=== PATIENT | male | born 1955 | race Caucasian/White ===

== ENCOUNTER 2016-08-12 05:08 | Emergency (ER) | payer BC ==
--- NOTE | 2016-08-12 07:05 | DIAGNOSTIC IMAGING REPORT ---
PROCEDURE: XR CHEST 2 VIEW INDICATION: COUGH TECHNIQUE: PA and lateral views. COMPARISON: None. FINDINGS: Findings suggest mild of parenchymal changes at the left medial lung base (retrocardiac region). Lungs are otherwise clear. Heart and mediastinum are normal. Moderate degenerative change of the thoracic spine with old mild compression deformities of some of the mid thoracic vertebral bodies. IMPRESSION: 1. Mild parenchymal change at the left medial lung base. Consider underlying pneumonia (e.g., aspiration, bacterial, Mycoplasma). 2. Findings discussed with Dr. Saqib Singer.
--- NOTE | 2016-08-12 09:43 | ED ORDER SUMMARY ---
..... Patient: CECELIA CABEZAS OrderSheet [facility] VisitID: [id number] [address] [place] [address] 61y, M Registration Date/Time: 08/12/2016 ORDER SHEET Weight: 81.6 kg (stated) Allergies: No Known Drug Allergy GENERAL ORDERS: Chest 2V Urgent (06:08/12/2016 Radha RITTER) (Ack 6:32 Hannah) (6:41 AMcQuoid ER Tech1) Blood Culture (No) (N/A) Urgent (:08/12/2016 Radha RITTER) (Ack 6:31 Hannah) (8:04 MWinterer R.N.) Cardiac Panel Stat (:08/12/2016 Radha RITTER) (Ack 6:30 Hannah) (7:04 MWinterer R.N.) BNP Urgent (:08/12/2016 Radha RITTER) (Ack 6:31 Hannah) (7:04 MWinterer R.N.) TSH Urgent (:08/12/2016 Radha RITTER) (Ack 6:31 Hannah) (7:05 MWinterer R.N.) UA-Culture if indicated Urgent (:08/12/2016 Radha RITTER) (Ack 6:31 Hannah) (Cancelled: Unable to Kfwfamm98:17 MWinterer R.N.) Urine Drug Screen Urgent (:08/12/2016 Radha RITTER) (Ack 6:31 Hannah) (Cancelled: Unable to Jxbdqmc26:18 MWinterer R.N.) CRP Urgent (:08/12/2016 Radha RITTER) (Ack 6:31 Hannah) (7:05 MWinterer R.N.) PCT (Procalcitonin) Urgent (:08/12/2016 Radha RITTER) (Ack 6:31 Hannah) (7:05 MWinterer R.N.) Pulse oximeter (08/12/2016 Radha RITTER) (6:31 HSoule) EKG - ER Stat (06:29 08/12/2016 Radha RITTER) (Ack 6:32 Hannah) (6:51 SRedmond) Rapid Influenza Screen (Nasal Pharyngeal) (swab) Urgent (06:29 08/12/2016 Radha RITTER) (Ack 6:32 Hannah) (7:05 MWinterer R.N.) - (Run the whole liter of NS in prior to discharge.) (08:56 08/12/2016 Radha RITTER) (9:14 MWinterer R.N.) MEDICATION ORDERS: Zithromax PO 500 mg (NOW) (08:22 08/12/2016 Radha RITTER) (8:34 KWrafael R.N.) IV FLUIDS: IV NS : initial bolus 500 mL (1000 mL/hr), then 150 mL/hr for 4h (NOW); Routine (06:28 08/12/2016 Radha RITTER) (Ack 7:00 MWinterer R.N.) (Ack 7:00 Franklin) (7:08 Sina R.N.) Rocephin IV 2 gm/50mL (NOW) (08:22 08/12/2016 Radha RITTER) (8:33 KWilliams R.N.) ORDER SHEET NOTES: [Electronically signed by Radha Begum R.N. (13:19 08/12/2016)] [Electronically signed by Saqib Singer MD (11:47 08/15/2016)] [Electronically locked/signed by Radha Begum R.N. (13:19 08/12/2016)]
--- NOTE | 2016-08-12 09:43 | ED NURSING NOTES ---
Clinical Report - Nurses [facility] [address] [place] [address] 08/12/2016 5:12 [id number] Triage time 05:Aug 12 2016. Acuity: LEVEL 3. Chief Complaint: CHILLS and FATIGUE (Cough). SEPSIS SCREEN: Sepsis Screen: negative. Negative (no infection suspected/documented). [place]SERRAT COMA SCORE: [place] Coma Scale: 15- eyes open spontaneously (4); best verbal response- oriented x 4 (5); best motor response- obeys commands (6). --05:28 Emilee Rae 05:23 08/12/16. BP: 117/68. HR: 65. RR: 20. O2 saturation: 93% on room air. Temp: 98.8 F (oral). Pain level now: 7/10. Additional comments: Low back pain, chronic . --05:28 Emilee Rae. Weight: 81.6 kg stated. Height/Length: 71 inches Per Patient. BMI: 25.1. --05:24 Emilee Rae. Medications None. --05:24 Emilee Rae. Medication/allergy information source: the patient. --05:28 Emilee Rae. Allergies No Known Drug Allergy. --05:24 Emilee Rae. History Arrived by private vehicle. Historian: patient. Unaccompanied. Primary physician (none). Onset. (1 weeks ago). ( Patient reports a dry non productive cough for one week. He reports being chilled and "unable to warm up". He states he is fatigued and just wants to sleep.). PAST MEDICAL HX: Immunizations: status is unknown. SOCIAL HX: Light tobacco smoker (cigarette)- less than 1/2 a pack per day. No alcohol use or drug use. No infectious disease exposure. ABUSE ASSESSMENT: No report of abuse. FALL RISK ASSESSMENT: Fall risk assessment completed. No fall risk identified. NUTRITIONAL RISK ASSESSMENT: The nutritional risk assessment revealed no deficiencies. FUNCTIONAL ASSESSMENT: Functional assessment: no impairments noted. LEARNING NEEDS ASSESSMENT: The learning needs assessment revealed no barriers. SKIN INTEGRITY ASSESSMENT: Skin integrity risk assessment completed. No skin integrity risk identified. --05:28 Emilee Rae. PROBLEMS: Skin Cancer. --05:24 Emilee Rae. 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 --05:24 Emilee Rae. Interventions ID band on patient. To treatment room. --05:28 Emilee Rae. PHYSICAL ASSESSMENT 05:29 08/12/16. Ambulatory to room. GENERAL / NEURO / PSYCH: Alert. Oriented X 4. Appears in no acute distress. RESPIRATORY: Respirations not labored. CVS: Normal sinus rhythm noted. SKIN: Skin is dry. ( Skin cool to touch, patient lips slightly discolored). --05:29 Emilee Rae. NURSING PROGRESS NOTES 05:30 08/12/16. Pulse oximeter and NIBP monitor placed on patient; monitor alarms on. Patient gowned. Head of bed elevated. Warming measures: blanket applied. Reassurance given to the patient. Two patient identifiers checked. Call light placed in reach. Side rails up. Patient placed in chair. Brakes of chair on. Patient ready for evaluation- chart flagged. --05:30 Emilee Rae ( Patient oxygen down to 88% on RA, NC applied at 2 L, Oxygen up to 93%). --05:47 Emilee Rae Patient transported to radiology by stretcher with tech. (06:32 Aug 12 2016). --06:32 Emilee Rae EKG time: (0647 AM). EKG was performed by a tech and shown to the ED physician. --06:51 Doyle Murcia 07:00 08/12/16. BP: 110/60. HR: 61. RR: 20. O2 saturation: 95% on nasal cannula at 3 liters/minute. --07:02 Emilee Rae 07:03 08/12/2016 Site #1 started via IV in the right antecubital space with an 20g angiocath, with aseptic technique and good blood return; one attempt. Blood drawn: rainbow set and cultures x1. Labeled in the presence of the patient and sent to the lab. Saline lock flushed with 10 mL saline. --07:08 Darshan Trevizo R.N. 07:07 08/12/16. Care transferred and report given (Radha RN). --07:07 Darshan Trevizo R.N. 07:08 08/12/2016 Started bag #1 1000 mL IV Fluids IV NS (Saline); at 999 mL/hr over 30 minute(s) via site #1 via IV pump. Allergies verified and confirmed 5 rights. IV patency established. IV site checked: no pain, redness, or swelling. IV flushed thoroughly pre- and post-medication administration. --07:08 Darshan Trevizo R.N. 07:31 08/12/2016 IV Fluids IV NS via IV site #1 Rate Changed: bag #1 decreased to 150 mL/hr via IV pump. IV patency established. IV site checked: no pain, redness, or swelling. IV flushed thoroughly. Confirmed 5 Rights. --07:31 Shelton Regalado R.N. 07:40 08/12/16. BP: 92/49. HR: 57. RR: 18. O2 saturation: 99% on nasal cannula at 2 liters/minute. --07:42 Radha Begum R.N. 07:42 08/12/16. The patient reports no complaints and he is calm and resting quietly. --07:42 Radha Begum R.N. 08:28 08/12/16. BP: 107/55. HR: 60. RR: 18. O2 saturation: 99% on nasal cannula at 2 liters/minute. --08:28 Radha Begum R.N. 08:33 08/12/2016 Started 2 gm of Rocephin (CefTRIAXone Sodium) IVPB in bag #1 50 mL; at 150 mL/hr over 20 minute(s) via site #1 via IV pump. Allergies verified and confirmed 5 rights. IV patency established. IV site checked: no pain, redness, or swelling. IV flushed thoroughly pre- and post-medication administration. Completed per protocol. --08:33 Shelton Regalado R.N. 08:34 08/12/2016 Zithromax PO Tablets 500 mg given. Allergies verified and confirmed 5 rights. --08:34 Shelton Regalado R.N. 09:40 08/12/2016 Site #1 removed upon discharge. Catheter intact. Manual pressure and bandage applied. --13:17 Radha Begum R.N. 09:40 08/12/2016 IV Fluids IV NS Discontinued: bag #1 infused upon discharge. Total amount infused: 1000 mL. IV patency established. IV site checked: no pain, redness, or swelling. IV flushed thoroughly. --13:17 Radha Begum R.N. DISPOSITION / DISCHARGE Departure time: 939Aug 12 2016. Condition at departure: improved and stable. No learning barriers present. Discharge instructions provided and reviewed with the patient. Reviewed medication(s) side effects, precautions and dosing information. Prescription(s) given to the patient. Patient verbalized understanding. Written instructions provided in Macedonian. The patient was discharged by the physician. He was discharged home. He left the Emergency Department ambulatory and via private vehicle. Patient driving. --13:16 Radha Begum R.N. 13:15 08/12/16. BP: 103/57. HR: 57. RR: 20. O2 saturation: 97%. Temp: 98.5 F (oral). Pain level now: 0/10. --13:16 Radha Begum R.N. Locked/Released at 08/12/2016 13:19 by Radha Begum R.N.
--- NOTE | 2016-08-12 09:43 | ED ORDER SUMMARY ---
..... Patient: CECELIA CABEZAS OrderSheet [facility] VisitID: [id number] [address] [place] [address] 61y, M Registration Date/Time: 08/12/2016 ORDER SHEET Weight: 81.6 kg (stated) Allergies: No Known Drug Allergy GENERAL ORDERS: Chest 2V Urgent (06:08/12/2016 Radha RITTER) (Ack 6:32 Hannah) (6:41 AMcQuoid ER Tech1) Blood Culture (No) (N/A) Urgent (:08/12/2016 Radha RITTER) (Ack 6:31 Hannah) (8:04 MWinterer R.N.) Cardiac Panel Stat (:08/12/2016 Radha RITTER) (Ack 6:30 Hannah) (7:04 MWinterer R.N.) BNP Urgent (:08/12/2016 Radha RITTER) (Ack 6:31 Hannah) (7:04 MWinterer R.N.) TSH Urgent (:08/12/2016 Radha RITTER) (Ack 6:31 Hannah) (7:05 MWinterer R.N.) UA-Culture if indicated Urgent (:08/12/2016 Radha RITTER) (Ack 6:31 Hannah) (Cancelled: Unable to Xamwxzj36:17 MWinterer R.N.) Urine Drug Screen Urgent (:08/12/2016 Radha RITTER) (Ack 6:31 Hannah) (Cancelled: Unable to Bnlgnmo63:18 MWinterer R.N.) CRP Urgent (:08/12/2016 Radha RITTER) (Ack 6:31 Hannah) (7:05 MWinterer R.N.) PCT (Procalcitonin) Urgent (:08/12/2016 Radha RITTER) (Ack 6:31 Hannah) (7:05 MWinterer R.N.) Pulse oximeter (08/12/2016 Radha RITTER) (6:31 HSoule) EKG - ER Stat (06:29 08/12/2016 Radha RITTER) (Ack 6:32 Hannah) (6:51 SRedmond) Rapid Influenza Screen (Nasal Pharyngeal) (swab) Urgent (06:29 08/12/2016 Radha RITTER) (Ack 6:32 Hannah) (7:05 MWinterer R.N.) - (Run the whole liter of NS in prior to discharge.) (08:56 08/12/2016 Radha RITTER) (9:14 MWinterer R.N.) MEDICATION ORDERS: Zithromax PO 500 mg (NOW) (08:22 08/12/2016 Radha RITTER) (8:34 KWrafael R.N.) IV FLUIDS: IV NS : initial bolus 500 mL (1000 mL/hr), then 150 mL/hr for 4h (NOW); Routine (06:28 08/12/2016 Radha RITTER) (Ack 7:00 MWinterer R.N.) (Ack 7:00 Franklin) (7:08 Sina R.N.) Rocephin IV 2 gm/50mL (NOW) (08:22 08/12/2016 Radha RITTER) (8:33 KWilliams R.N.) ORDER SHEET NOTES: [Electronically signed by Radha Begum R.N. (13:19 08/12/2016)] [Electronically signed by Saqib Singer MD (11:47 08/15/2016)] [Electronically locked/signed by Radha Begum R.N. (13:19 08/12/2016)]
--- NOTE | 2016-08-12 09:43 | ED CLINICAL REPORT ---
Clinical Report - Physicians/[facility] [address] [place] [address] 08/12/2016 5:12 Patient: CECELIA CABEZAS Time Seen: 06:07 Aug 12 2016. Arrived- By private vehicle. Historian- patient. CPT: ER phys charges level 4 (#[id number]). HISTORY OF PRESENT ILLNESS Chief Complaint: COUGH and CHILLS. 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 The illness is described as moderate. The patient has had sputum production, a cough, chills and muscle aches. No difficulty breathing or chest discomfort or pain. Additional history - No known contact with a sick individual. (Weakness.). Similar symptoms previously: None. Recent medical care: Not recently seen/assessed. REVIEW OF SYSTEMS No headache, eye discomfort, nausea, vomiting or diarrhea. No abdominal pain, pedal edema, calf pain, difficulty with urination or skin rash. No enlarged lymph nodes or joint pain. All systems otherwise negative, except as recorded above. 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 Medications: None. Allergies: No Known Drug Allergy. SOCIAL HISTORY Heavy tobacco smoker (cigarette)- less than 1 pack per day. ADDITIONAL NOTES The nursing notes have been reviewed. PHYSICAL EXAM Vital Signs: 08/12/2016 05:23 BP: 117/68. HR: 65. RR: 20. O2 saturation: 93%. Temp: 98.8 F. Pain level now: 7/10. Appearance: Alert. No acute distress. Eyes: Pupils equal, round and reactive to light. Eyes normal inspection. ENT: Ears normal. Nose normal. Pharynx normal. Uvula midline. (Large facial scar , left face.). Neck: Normal inspection. Neck supple. CVS: Normal heart rate and rhythm. Heart sounds normal. Pulses normal. Respiratory: No respiratory distress. Moderately decreased breath sounds diffusely over both lungs. No rales, rhonchi or wheezes. Abdomen: Soft and nontender. Back: Normal inspection. Skin: Skin warm. Normal skin color. No rash. Extremities: Extremities exhibit normal ROM. No calf tenderness. No lower extremity edema. Neuro: Oriented X 3. No motor deficit. No sensory deficit. Reflexes normal. LABS, X-RAYS, AND EKG Chest X-ray: (Left , retrocardiac infiltrate consistent with pneumonia). Views: PA and lateral. Technique: good. The X-rays were independently viewed by me, interpreted by the radiologist and discussed with the radiologist. Laboratory Tests: CBC w Diff: (MIRTA: 08/12/2016 06:45) ( [facility] 08/12/2016 07:14) Final results Test Result Flag Units (Reference) WHITE BLOOD COUNT 9.9 K/uL (4.5-11.5) RED BLOOD COUNT 4.58 M/uL (4.50-5.90) HEMOGLOBIN 13.9 gm/dL (13.5-17.5) HEMATOCRIT 41.3 % (41.0-53.0) MEAN CELL VOLUME 90 fL (80-100) MEAN CORPUSCULAR HGB 30 pg (26-34) MEAN CORPUSCULAR HGB CONC 34 g/dL (31-37) RED CELL DISTRIBUTION WIDTH 14.4 % (11.6-14.8) PLATELET COUNT 164 K/uL (150-400) NEUTROPHIL % 78.2 H % (50-75) LYMPH % 9.5 L % (25-40) MONO % 12.2 % (3-14) EOSINOPHIL % 0 % (0-4) BASOPHIL % 0.1 % (0-2) BNP: (MIRTA: 08/12/2016 06:45) ( [facility] 08/12/2016 07:36) Final results Test Result Flag Units (Reference) B-TYPE NATRIURETIC PEPTIDE 41.6 pg/ml (5-100) [id number]: (MIRTA: 08/12/2016 06:45) ( [facility] 08/12/2016 07:56) Final results Test Result Flag Units (Reference) PROCALCITONIN <0.5 ng/mL (0-0.5) PCT Concentration: Interpretation : Risk/option for action PCT <=0.5 ng/mL : Systemic : Low risk forinfection(sepsis): progression to severeis not likely. : systemic infection.Local bacterial : CAUTION-PCT levelsinfection is : below 0.5 ng/mL do notpossible. : exclude an infection,because localizedinfections (withoutsystemic signs) may beassociated with suchlow levels. If PCT ismeasured very earlyafter a bacterialchallenge (usually <6hours), these valuesmay still be low. Inthis case PCT shouldbe re-assessed 6-24hours later. PCT >0.5 and : Systemic infection: Moderate risk for<= 2 ng/mL : (sepsis) is : progression to severepossible, but : systemic infection.other conditions : The patient should beare known to : closely monitoredelevate PCT. : both clinically andby re-assessing PCTwithin 6-24 hours. PCT > 2 ng/mL : Systemic infection: High risk for(sepsis) is likely: progression to severeunless other : systemic infection.causes are known. : PCT >= 10 ng/mL : Important systemic: High likelihood ofinflammatory : severe sepsis orresponse, almost : septic shock.exclusively due to:severe bacterial :sepsis or septic :shock. : CHEM 13 PANEL: (MIRTA: 08/12/2016 06:45) ( MsgRcvd 08/12/2016 07:55) Final results Test Result Flag Units (Reference) GLUCOSE 101 mg/dL (70-110) BUN 19 H mg/dL (7-18) CREATININE 0.9 mg/dL (0.6-1.3) Estimated GFR >60 mL/min Estimated GFR- >60 mL/min Note: Persistent reduction over 3 months in eGFR<60 mL/min/1.73 m2 defines CKD. Patients with eGFR values>=60 mL/min/1.73 m2 may also have CKD if evidence ofpersistent proteinuria. Additional information may be foundat www.kidney.org. SODIUM 129 L mmol/L (136-145) POTASSIUM 4.2 mmol/L (3.5-5.1) CHLORIDE 95 L mmol/L (98-107) CARBON DIOXIDE 26 mmol/L (21-32) CALCIUM 8.5 mg/dL (8.5-10.1) TOTAL PROTEIN 7.5 g/dL (6.4-8.2) ALBUMIN 3.1 L g/dL (3.3-5.0) BILIRUBIN, TOTAL 0.4 mg/dL (0.0-1.0) ALKALINE PHOSPHATASE 65 U/L (46-116) AST (SGOT) 32 U/L (15-37) ALT (SGPT) 31 U/L (12-78) CPK 457 H U/L (24-260) MAGNESIUM 1.9 mg/dL (1.8-2.4) CK-MB 1.3 ng/mL (0.5-3.2) %CKMB 0.3 % (0.0-4.0) TROPONIN I <0.05 L ng/mL (0.00-1.5) TROPONIN REFERENCE RANGE:<0.1 NEGATIVE0.1-1.5 INDETERMINANT>1.5 POSITIVE THYROID STIMULATING HORMONE 3.115 uIU/mL (0.30-3.74) C-REACTIVE PROTEIN 5.8 H mg/dL (0.0-0.9) Rapid Influenza Screen: (MIRTA: 08/12/2016 06:45) ( MsgRcvd 08/12/2016 07:24) Final results SPECIMEN DESCRIPTION: SWAB Test Result Flag Units (Reference) RAPID INFLUENZA SCREEN DATE: 08/12/16 INFLUENZA A: NEGATIVE SCREEN FOR INFLUENZA A INFLUENZA B: NEGATIVE SCREEN FOR INFLUENZA B . PROGRESS AND PROCEDURES Course of Care: IV NS BC times 2 Rocephin 2g IV Zithromax 500 mg po No hypoxia or signs of sepsis. Patient/family counseled. Disposition: Discharged. Condition: stable and improved. CLINICAL IMPRESSION Bacterial pneumonia. Vital signs recorded and reviewed; empiric antibiotics given in the ED. No hypoxemia. Dehydration. INSTRUCTIONS Do not work for three days until better. Drink plenty of fluids. Warnings: Further evaluation is necessary. GENERAL WARNINGS: Return or contact your physician immediately if your condition worsens or changes unexpectedly, if not improving as expected, or if other problems arise. Prescription Medications: Albuterol HFA oral inhaler: inhale 2 puffs via spacer every 4 hours as needed for difficulty breathing, until symptoms improve. Dispense one (1) unit. No refill. Ceftin 500 mg: take 1 tab orally every 12 hours for 10 days. No refills. Substitution is permissible. Zithromax 250 mg tablets: take 1 orally every day for 4 days. Total course 4 days. No refills. Substitution is permissible. Prednisone 40 mg a day for 3 days. OTC Medications: Acetaminophen (available over the counter): take according to label instructions. Follow-up: Follow up with your doctor in three days. Call for the next available appointment. Understanding of the discharge instructions verbalized by patient. (Electronically signed by Saqib Singer MD 08/15/2016 11:47)
--- NOTE | 2016-08-12 09:43 | ED CLINICAL REPORT ---
Clinical Report - Physicians/Mid Levels [facility] [address] [place] [address] 08/12/2016 5:12 Patient: CECELIA CABEZAS Time Seen: 06:07 Aug 12 2016. Arrived- By private vehicle. Historian- patient. CPT: ER phys charges level 4 (#[id number]). HISTORY OF PRESENT ILLNESS Chief Complaint: COUGH and CHILLS. This started about 4 days [employer] and is still present. The illness is described as moderate. The patient has had sputum production, a cough, chills and muscle aches. No difficulty breathing or chest discomfort or pain. Additional history - No known contact with a sick individual. (Weakness.). Similar symptoms previously: None. Recent medical care: Not recently seen/assessed. REVIEW OF SYSTEMS No headache, eye discomfort, nausea, vomiting or diarrhea. No abdominal pain, pedal edema, calf pain, difficulty with urination or skin rash. No enlarged lymph nodes or joint pain. All systems otherwise negative, except as recorded above. 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 Medications: None. Allergies: No Known Drug Allergy. SOCIAL HISTORY Heavy tobacco smoker (cigarette)- less than 1 pack per day. ADDITIONAL NOTES The nursing notes have been reviewed. PHYSICAL EXAM Vital Signs: 08/12/2016 05:23 BP: 117/68. HR: 65. RR: 20. O2 saturation: 93%. Temp: 98.8 F. Pain level now: 7/10. Appearance: Alert. No acute distress. Eyes: Pupils equal, round and reactive to light. Eyes normal inspection. ENT: Ears normal. Nose normal. Pharynx normal. Uvula midline. (Large facial scar , left face.). Neck: Normal inspection. Neck supple. CVS: Normal heart rate and rhythm. Heart sounds normal. Pulses normal. Respiratory: No respiratory distress. Moderately decreased breath sounds diffusely over both lungs. No rales, rhonchi or wheezes. Abdomen: Soft and nontender. Back: Normal inspection. Skin: Skin warm. Normal skin color. No rash. Extremities: Extremities exhibit normal ROM. No calf tenderness. No lower extremity edema. Neuro: Oriented X 3. No motor deficit. No sensory deficit. Reflexes normal. LABS, X-RAYS, AND EKG Chest X-ray: (Left , retrocardiac infiltrate consistent with pneumonia). Views: PA and lateral. Technique: good. The X-rays were independently viewed by me, interpreted by the radiologist and discussed with the radiologist. Laboratory Tests: CBC w Diff: (MIRTA: 08/12/2016 06:45) ( [facility] 08/12/[facility] 07:14) Final results Test Result Flag Units (Reference) WHITE BLOOD COUNT 9.9 K/uL (4.5-11.5) RED BLOOD COUNT 4.58 M/uL (4.50-5.90) HEMOGLOBIN 13.9 gm/dL (13.5-17.5) HEMATOCRIT 41.3 % (41.0-53.0) MEAN CELL VOLUME 90 fL (80-100) MEAN CORPUSCULAR HGB 30 pg (26-34) MEAN CORPUSCULAR HGB CONC 34 g/dL (31-37) RED CELL DISTRIBUTION WIDTH 14.4 % (11.6-14.8) PLATELET COUNT 164 K/uL (150-400) NEUTROPHIL % 78.2 H % (50-75) LYMPH % 9.5 L % (25-40) MONO % 12.2 % (3-14) EOSINOPHIL % 0 % (0-4) BASOPHIL % 0.1 % (0-2) BNP: (MIRTA: 08/12/2016 06:45) ( [facility] 08/12/2016 07:36) Final results Test Result Flag Units (Reference) B-TYPE NATRIURETIC PEPTIDE 41.6 pg/ml (5-100) [id number]: (MIRTA: 08/12/2016 06:45) ( [facility] 08/12/2016 07:56) Final results Test Result Flag Units (Reference) PROCALCITONIN <0.5 ng/mL (0-0.5) PCT Concentration: Interpretation : Risk/option for action PCT <=0.5 ng/mL : Systemic : Low risk forinfection(sepsis): progression to severeis not likely. : systemic infection.Local bacterial : CAUTION-PCT levelsinfection is : below 0.5 ng/mL do notpossible. : exclude an infection,because localizedinfections (withoutsystemic signs) may beassociated with suchlow levels. If PCT ismeasured very earlyafter a bacterialchallenge (usually <6hours), these valuesmay still be low. Inthis case PCT shouldbe re-assessed 6-24hours later. PCT >0.5 and : Systemic infection: Moderate risk for<= 2 ng/mL : (sepsis) is : progression to severepossible, but : systemic infection.other conditions : The patient should beare known to : closely monitoredelevate PCT. : both clinically andby re-assessing PCTwithin 6-24 hours. PCT > 2 ng/mL : Systemic infection: High risk for(sepsis) is likely: progression to severeunless other : systemic infection.causes are known. : PCT >= 10 ng/mL : Important systemic: High likelihood ofinflammatory : severe sepsis orresponse, almost : septic shock.exclusively due to:severe bacterial :sepsis or septic :shock. : CHEM 13 PANEL: (MIRTA: 08/12/2016 06:45) ( MsgRcvd 08/12/2016 07:55) Final results Test Result Flag Units (Reference) GLUCOSE 101 mg/dL (70-110) BUN 19 H mg/dL (7-18) CREATININE 0.9 mg/dL (0.6-1.3) Estimated GFR >60 mL/min Estimated GFR- >60 mL/min Note: Persistent reduction over 3 months in eGFR<60 mL/min/1.73 m2 defines CKD. Patients with eGFR values>=60 mL/min/1.73 m2 may also have CKD if evidence ofpersistent proteinuria. Additional information may be foundat www.[email or web address].org. SODIUM 129 L mmol/L (136-145) POTASSIUM 4.2 mmol/L (3.5-5.1) CHLORIDE 95 L mmol/L (98-107) CARBON DIOXIDE 26 mmol/L (21-32) CALCIUM 8.5 mg/dL (8.5-10.1) TOTAL PROTEIN 7.5 g/dL (6.4-8.2) ALBUMIN 3.1 L g/dL (3.3-5.0) BILIRUBIN, TOTAL 0.4 mg/dL (0.0-1.0) ALKALINE PHOSPHATASE 65 U/L (46-116) AST (SGOT) 32 U/L (15-37) ALT (SGPT) 31 U/L (12-78) CPK 457 H U/L (24-260) MAGNESIUM 1.9 mg/dL (1.8-2.4) CK-MB 1.3 ng/mL (0.5-3.2) %CKMB 0.3 % (0.0-4.0) TROPONIN I <0.05 L ng/mL (0.00-1.5) TROPONIN REFERENCE RANGE:<0.1 NEGATIVE0.1-1.5 INDETERMINANT>1.5 POSITIVE THYROID STIMULATING HORMONE 3.115 uIU/mL (0.30-3.74) C-REACTIVE PROTEIN 5.8 H mg/dL (0.0-0.9) Rapid Influenza Screen: (MIRTA: 08/12/2016 06:45) ( MsgRcvd 08/12/2016 07:24) Final results SPECIMEN DESCRIPTION: SWAB Test Result Flag Units (Reference) RAPID INFLUENZA SCREEN DATE: 08/12/16 INFLUENZA A: NEGATIVE SCREEN FOR INFLUENZA A INFLUENZA B: NEGATIVE SCREEN FOR INFLUENZA B . PROGRESS AND PROCEDURES Course of Care: IV NS BC times 2 Rocephin 2g IV Zithromax 500 mg po No hypoxia or signs of sepsis. Patient/family counseled. Disposition: Discharged. Condition: stable and improved. CLINICAL IMPRESSION Bacterial pneumonia. Vital signs recorded and reviewed; empiric antibiotics given in the ED. No hypoxemia. Dehydration. INSTRUCTIONS Do not work for three days until better. Drink plenty of fluids. Warnings: Further evaluation is necessary. GENERAL WARNINGS: Return or contact your physician immediately if your condition worsens or changes unexpectedly, if not improving as expected, or if other problems arise. Prescription Medications: Albuterol HFA oral inhaler: inhale 2 puffs via spacer every 4 hours as needed for difficulty breathing, until symptoms improve. Dispense one (1) unit. No refill. Ceftin 500 mg: take 1 tab orally every 12 hours for 10 days. No refills. Substitution is permissible. Zithromax 250 mg tablets: take 1 orally every day for 4 days. Total course 4 days. No refills. Substitution is permissible. Prednisone 40 mg a day for 3 days. OTC Medications: Acetaminophen (available over the counter): take according to label instructions. Follow-up: Follow up with your doctor in three days. Call for the next available appointment. Understanding of the discharge instructions verbalized by patient. (Electronically signed by Saqib Singer MD 08/15/2016 11:47)
--- NOTE | 2016-08-15 11:47 | ED DISCHARGE INSTRUCTIONS ---
Patient: CECELIA CABEZAS General Instructions [facility] VisitID: [id number] [address] [place] [address] 61y, M Registration Date/Time: 08/12/2016 Bacterial pneumonia. Vital signs recorded and reviewed; empiric antibiotics given in the ED. No hypoxemia. Dehydration. INSTRUCTIONS Do not work for three days until better. Drink plenty of fluids. Warnings: Further evaluation is necessary. GENERAL WARNINGS: Return or contact your physician immediately if your condition worsens or changes unexpectedly, if not improving as expected, or if other problems arise. Prescription Medications: Albuterol HFA oral inhaler: inhale 2 puffs via spacer every 4 hours as needed for difficulty breathing, until symptoms improve. Dispense one (1) unit. No refill. Ceftin 500 mg: take 1 tab orally every 12 hours for 10 days. No refills. Substitution is permissible. Zithromax 250 mg tablets: take 1 orally every day for 4 days. Total course 4 days. No refills. Substitution is permissible. Prednisone 40 mg a day for 3 days. OTC Medications: Acetaminophen (available over the counter): take according to label instructions. Follow-up: Follow up with your doctor in three days. Call for the next available appointment. Understanding of the discharge instructions verbalized by patient. ADDITIONAL INFORMATION Pneumonia (Adult) Pneumonia is an infection deep within the lung, in the small air sacs (alveoli). It may be due to a virus or bacteria and is usually treated with an antibiotic. Severe cases require treatment in the hospital. Milder cases can be treated at home. Symptoms usually start to improve during the first2 days of treatment. Home Care: Rest at home for the first 23 days or until you feel stronger. When resuming activity, dont let yourself become overly tired. Avoid exposure to cigarette smoke (yours or others). You may use acetaminophen (Tylenol) or ibuprofen (Motrin, Advil) to control fever or pain, unless another medicine was prescribed. [NOTE: If you have chronic liver or kidney disease or ever had a stomach ulcer or GI bleeding, talk with your doctor before using these medicines.] (Aspirin should never be used in anyone under 18 years of age who is ill with a fever. It may cause severe liver damage.) Your appetite may be poor so a light diet is fine. Keep well hydrated by drinking 68 glasses of fluids per day (water, sport drinks such as Gatorade, sodas without caffeine, juices, tea, soup, etc.). This will help loosen secretions in the lung, making it easier for you to cough up the phlegm (sputum). If you also have heart or kidney disease, check with your doctor before you drink extra amounts of fluids. Finish all antibiotic medicine prescribed, even if you are feeling better after a few days. Follow Up with your doctor in the next 23 days (or as advised) to be sure you are responding properly to the medicine. [NOTE: If you are age 65 or older, or if you have chronic lung disease (asthma, emphysema or COPD), we recommendthe pneumococcal vaccination and a yearlyinfluenzavaccination(flu-shot) every . Ask your doctor about this.] Get Prompt Medical Attention if any of the following occur: Not getting better within the first 48 hours of treatment Increasing shortness of breath or rapid breathing (over 25 breaths/minute) Coughing up blood or increasing chest pain with breathing Fever of 100.4F (38C) oral or higher, not better with fever medication Increasing weakness, dizziness or fainting Increasing thirst or dry mouth Sinus pain, headache or a stiff neck Chest pain not caused by coughing Albuterol Sulfate Pressurized inhalation, suspension What is this medicine? ALBUTEROL (al BYOO ter ole) is a bronchodilator. It helps open up the airways in your lungs to make it easier to breathe. This medicine is used to treat and to prevent bronchospasm. How should I use this medicine? This medicine is for inhalation through the mouth. Follow the directions on your prescription label. Take your medicine at regular intervals. Do not use more often than directed. Make sure that you are using your inhaler correctly. Ask you doctor or health care provider if you have any questions. Talk to your engineer systems regarding the use of this medicine in children. Special care may be needed. What side effects may I notice from receiving this medicine? Side effects that you should report to your doctor or health palliative care nurse practitioner as soon as possible: allergic reactions like skin rash, itching or hives, swelling of the face, lips, or tongue breathing problems chest pain feeling faint or lightheaded, falls high blood pressure irregular heartbeat fever muscle cramps or weakness pain, tingling, numbness in the hands or feet vomiting Side effects that usually do not require medical attention (report to your doctor or health palliative care nurse practitioner if they continue or are bothersome): cough difficulty sleeping headache nervousness or trembling stomach upset stuffy or runny nose throat irritation unusual taste What may interact with this medicine? anti-infectives like chloroquine and pentamidine caffeine cisapride diuretics medicines for colds medicines for depression or for emotional or psychotic conditions medicines for weight loss including some herbal products methadone some antibiotics like clarithromycin, erythromycin, levofloxacin, and linezolid some heart medicines steroid hormones like dexamethasone, cortisone, hydrocortisone theophylline thyroid hormones What if I miss a dose? If you miss a dose, use it as soon as you can. If it is almost time for your next dose, use only that dose. Do not use double or extra doses. Where should I keep my medicine? Keep out of the reach of children. Store at room temperature between 15 and 30 degrees C (59 and 86 degrees F). The contents are under pressure and may burst when exposed to heat or flame. Do not freeze. This medicine does not work as well if it is too cold. Throw away any unused medicine after the expiration date. Inhalers need to be thrown away after the labeled number of puffs have been used or by the expiration date; whichever comes first. Ventolin HFA should be thrown away 12 months after removing from foil pouch. Check the instructions that come with your medicine. What should I tell my health care provider before I take this medicine? They need to know if you have any of the following conditions: diabetes heart disease or irregular heartbeat high blood pressure pheochromocytoma seizures thyroid disease an unusual or allergic reaction to albuterol, levalbuterol, sulfites, other medicines, foods, dyes, or preservatives or trying to get breast-feeding What should I watch for while using this medicine? Tell your doctor or health palliative care nurse practitioner if your symptoms do not improve. Do not use extra albuterol. If your asthma or bronchitis gets worse while you are using this medicine, call your doctor right away. If your mouth gets dry try chewing sugarless gum or sucking hard candy. Drink water as directed. Azithromycin Oral tablet What is this medicine? AZITHROMYCIN (az ith rylan MYE sin) is a macrolide antibiotic. It is used to treat or prevent certain kinds of bacterial infections. It will not work for colds, flu, or other viral infections. How should I use this medicine? Take this medicine by mouth with a full glass of water. Follow the directions on the prescription label. The tablets can be taken with food or on an empty stomach. If the medicine upsets your stomach, take it with food. Take your medicine at regular intervals. Do not take your medicine more often than directed. Take all of your medicine as directed even if you think your are better. Do not skip doses or stop your medicine early. Talk to your engineer systems regarding the use of this medicine in children. Special care may be needed. What side effects may I notice from receiving this medicine? Side effects that you should report to your doctor or health palliative care nurse practitioner as soon as possible: allergic reactions like skin rash, itching or hives, swelling of the face, lips, or tongue confusion, nightmares or hallucinations dark urine difficulty breathing hearing loss irregular heartbeat or chest pain pain or difficulty passing urine redness, blistering, peeling or loosening of the skin, including inside the mouth white patches or sores in the mouth yellowing of the eyes or skin Side effects that usually do not require medical attention (report to your doctor or health palliative care nurse practitioner if they continue or are bothersome): diarrhea dizziness, drowsiness headache stomach upset or vomiting tooth discoloration vaginal irritation What may interact with this medicine? Do not take this medicine with any of the following medications: lincomycin This medicine may also interact with the following medications: amiodarone antacids cyclosporine digoxin magnesium nelfinavir phenytoin warfarin What if I miss a dose? If you miss a dose, take it as soon as you can. If it is almost time for your next dose, take only that dose. Do not take double or extra doses. Where should I keep my medicine? Keep out of the reach of children. Store at room temperature between 15 and 30 degrees C (59 and 86 degrees F). Throw away any unused medicine after the expiration date. What should I tell my health care provider before I take this medicine? They need to know if you have any of these conditions: kidney disease liver disease irregular heartbeat or heart disease an unusual or allergic reaction to azithromycin, erythromycin, other macrolide antibiotics, foods, dyes, or preservatives or trying to get breast-feeding What should I watch for while using this medicine? Tell your doctor or health palliative care nurse practitioner if your symptoms do not improve. Do not treat diarrhea with over the counter products. Contact your doctor if you have diarrhea that lasts more than 2 days or if it is severe and watery. This medicine can make you more sensitive to the sun. Keep out of the sun. If you cannot avoid being in the sun, wear protective clothing and use sunscreen. Do not use sun lamps or tanning beds/booths. You have been given the following additional information: Pneumonia (Adult) Albuterol Sulfate Pressurized inhalation, suspension Azithromycin Oral tablet Do not work for three days until better. (Electronically signed by Saqib Singer MD 08/15/2016 11:47)
--- NOTE | 2016-08-15 11:47 | ED MED RECONCILIATION SUMMARY ---
Patient: CECELIA CABEZAS Medication Reconciliation Report [facility] VisitID: [id number] [address] [place] [address] 61y, M Registration Date/Time: 08/12/2016 Weight: 81.6 kg Height/Length: 71 in. BMI: 25.1 ALLERGIES: No Known Drug Allergy The patient's Home Medications are listed below: NONE. The source(s) of the original Home Medication information: patient The following Medications were given to the patient in the Emergency Department: IV NS IV Fluids bolus 0, then 999 mL/hr, administered: 08/12/2016 7:08:00 AM Rocephin [IVPB] IVPB bolus 0, then 2 gm 150 mL/hr, administered: 08/12/2016 8:33:00 AM Zithromax [PO] PO 500 mg, administered: 08/12/2016 8:34:00 AM The following Medications were prescribed to the patient: Acetaminophen (available over the counter): take according to label instructions. -- Saqib Singer MD Prednisone 40 mg a day for 3 days. -- Saqib Singer MD Albuterol HFA oral inhaler: inhale 2 puffs via spacer every 4 hours as needed for difficulty breathing, until symptoms improve. Dispense one (1) unit. No refill. -- Saqib Singer MD Ceftin 500 mg: take 1 tab orally every 12 hours for 10 days. No refills. Substitution is permissible. -- Saqib Singer MD Zithromax 250 mg tablets: take 1 orally every day for 4 days. Total course 4 days. No refills. Substitution is permissible. -- Saqib Singer MD
--- NOTE | 2016-08-15 11:47 | ED MAR SUMMARY ---
..... Medication Administration Record [facility] [address] [place] [address] Patient: CECELIA CABEZAS Visit ID: [id number] 61y, M Weight: 81.6 kg Height/Length: 71 in BMI: 25.1 ALLERGIES: No Known Drug Allergy Start 07:08 08/12/2016 Darshan Trevizo R.N., Stop 09:40 08/12/2016 Radha Begum R.N. Medication Administered: IV NS (SALINE), Dose: IV Fluids over 30 minute(s), Rate: 999 mL/hr, Dispensed: 1000 mL bag, Site: #1 right AC. Medication Ordered: IV NS : initial bolus 500 mL (1000 mL/hr), then 150 mL/hr for 4h (NOW); Routine. Start 08:33 08/12/2016 Shelton Regalado R.N. Medication Administered: ROCEPHIN [IVPB] (CEFTRIAXONE SODIUM), Dose: 2 gm IVPB over 20 minute(s), Rate: 150 mL/hr, Dispensed: 50 mL bag, Site: #1 right AC. Medication Ordered: Rocephin IV 2 gm/50mL (NOW). Given 08:34 08/12/2016 Shelton Regalado R.N. Medication Administered: ZITHROMAX [PO], Dose: 500 mg Tablets PO. Medication Ordered: Zithromax PO 500 mg (NOW).
--- NOTE | 2016-08-15 11:47 | ED MED RECONCILIATION SUMMARY ---
Patient: CECELIA CABEZAS Medication Reconciliation Report [facility] VisitID: [id number] [address] [place] [address] 61y, M Registration Date/Time: 08/12/2016 Weight: 81.6 kg Height/Length: 71 in. BMI: 25.1 ALLERGIES: No Known Drug Allergy The patient's Home Medications are listed below: NONE. The source(s) of the original Home Medication information: patient The following Medications were given to the patient in the Emergency Department: IV NS IV Fluids bolus 0, then 999 mL/hr, administered: 08/12/2016 7:08:00 AM Rocephin [IVPB] IVPB bolus 0, then 2 gm 150 mL/hr, administered: 08/12/2016 8:33:00 AM Zithromax [PO] PO 500 mg, administered: 08/12/2016 8:34:00 AM The following Medications were prescribed to the patient: Acetaminophen (available over the counter): take according to label instructions. -- Saqib Singer MD Prednisone 40 mg a day for 3 days. -- Saqib Singer MD Albuterol HFA oral inhaler: inhale 2 puffs via spacer every 4 hours as needed for difficulty breathing, until symptoms improve. Dispense one (1) unit. No refill. -- Saqib Singer MD Ceftin 500 mg: take 1 tab orally every 12 hours for 10 days. No refills. Substitution is permissible. -- Saqib Singer MD Zithromax 250 mg tablets: take 1 orally every day for 4 days. Total course 4 days. No refills. Substitution is permissible. -- Saqib Singer MD
--- NOTE | 2016-08-15 11:47 | ED MAR SUMMARY ---
..... Medication Administration Record [facility] [address] [place] [address] Patient: CECELIA CABEZAS Visit ID: [id number] 61y, M Weight: 81.6 kg Height/Length: 71 in BMI: 25.1 ALLERGIES: No Known Drug Allergy Start 07:08 08/12/2016 Darshan Trevizo R.N., Stop 09:40 08/12/2016 Radha Begum R.N. Medication Administered: IV NS (SALINE), Dose: IV Fluids over 30 minute(s), Rate: 999 mL/hr, Dispensed: 1000 mL bag, Site: #1 right AC. Medication Ordered: IV NS : initial bolus 500 mL (1000 mL/hr), then 150 mL/hr for 4h (NOW); Routine. Start 08:33 08/12/2016 Shelton Regalado R.N. Medication Administered: ROCEPHIN [IVPB] (CEFTRIAXONE SODIUM), Dose: 2 gm IVPB over 20 minute(s), Rate: 150 mL/hr, Dispensed: 50 mL bag, Site: #1 right AC. Medication Ordered: Rocephin IV 2 gm/50mL (NOW). Given 08:34 08/12/2016 Shelton Regalado R.N. Medication Administered: ZITHROMAX [PO], Dose: 500 mg Tablets PO. Medication Ordered: Zithromax PO 500 mg (NOW).
== END 2016-08-12 09:40 | disposition home or self-care (01) ==
LOC: ED SRH 05:08
DX: J15.8 Pneumonia due to other specified bacteria (principal); E86.0 Dehydration; F17.210 Nicotine dependence, cigarettes, uncomplicated
CPT/HCPCS: 90065; 90074; 90100; 90616; 90617; 91320; 91400; 91585; 92610; 92720; 93004; 93140; 95059